=== PATIENT | male | born 1950 | race Caucasian/White ===

== ENCOUNTER 2021-08-24 13:31 | Outpatient (AMB) | payer MEDICARE, BC, SELFPAY ==
--- NOTE | 2021-08-24 13:54 | UROVISIT ---
Intake Vital Signs 08/24/21 13:55 Height 1.78 m Height Method Stated Weight 86.409 kg Weight Measurement Method Standing Scale BMI 27.3 Temp 98.1 F Temp Source Temporal Artery Scan Pulse 83 Pulse Source Monitor BP 135/93 H Blood Pressure Source Automatic Cuff Blood Pressure Location Left Upper Arm Position Sitting Intake Visit Reasons: Uro Office Visit Pipe Smoking Machine Offbearer Required: No Is patient in pain?: No Allergy Allergies No Known Allergies Allergy (Verified 08/24/21 13:55) Home Meds Medication Reconciliation rosuvastatin 10 mg tablet (Crestor) 10 mg PO QDAY 07/24/21 [History Confirmed 08/24/21] Nurse Note: Present with Dr Herrera in exam room. Patient to follow up as scheduled. mvp Fall Screening Do you have a fear of falling?: No Have you had a fall in the last 2 months?: No Do you use an assistive device for ambulation?: No Current Vital Signs Height Height Method Weight Weight Measurement Method Body Mass Index Temperature Temperature Source 1.78 m Stated 86.409 kg Standing Scale 27.3 98.1 F Temporal Artery Scan 08/24/21 13:55 08/24/21 13:55 08/24/21 13:55 08/24/21 13:55 08/24/21 13:55 08/24/21 13:55 08/24/21 13:55 Pulse Rate Pulse Source Blood Pressure Blood Pressure Source Blood Pressure Location Blood Pressure Position 83 Monitor 135/93 H Automatic Cuff Left Upper Arm Sitting 08/24/21 13:55 08/24/21 13:55 08/24/21 13:55 08/24/21 13:55 08/24/21 13:55 08/24/21 13:55 Urology Clinic Office Visit Office Visit Date of visit:: August 24, 2021 13:31 Allergies & Home Medications: Allergies No Known Allergies Allergy (Verified 07/24/21 09:51) Visit: Reason for visit: [] Office Visit findings: []
[2021-08-24 13:55] VITALS: BP 135/93; PULSE 83; TEMP 36.7; BMI 27.3
[2021-08-24 13:59] LABS: Bilirubin,Urine Clinitek Negative (Negative); Blood,Urine Clinitek 3+ (Negative); Glucose, Urine Clinitek Negative (Negative); Ketones,Urine Clinitek Trace (Negative); Leukocyte Esterase,Urine Clin Negative (Negative); Nitrite,Urine Clinitek Negative (Negative); PH,Urine Clinitek 5.5 (5.0-7.0); Protein,Urine Clinitek 3+ (Neg - Trace); Specific Gravity,Urine Clin >= 1.030 (1.001-1.030); Urobilinogen,Urine Clinitek 0.2 mg/dL (0.0-1.0)
--- NOTE | 2021-08-25 10:47 | ESPR_ITS ---
RE: CATINA PHILLIPS : 1950 DATE OF SERVICE: 08/24/2021 This is in-house consultation of this patient. CHIEF COMPLAINT: Right kidney mass 6.0 x 5.7 cm lower pole lateral cortex with adjacent lower pole cyst of 9.6 x 6.2 cm. BPH with urinary obstruction and LUTS. Family history of colon cancer. History of gross hematuria. History of stone disease. HISTORY OF PRESENT ILLNESS: This is a 71-year-old gentleman. This patient had a CAT scan of the abdomen and pelvis done in [facility]. I do not have the films. I have the report on the CAT scan. This revealed right kidney cancer 6 x 5.7 cm solid mass. PAST MEDICAL HISTORY: The patient has a history of stone disease in the past, he had a colonoscopy 2015. No abnormality was identified. SOCIAL HISTORY: The patient is not a smoker. I did urine for cytology. This revealed occasional cell showing increased N/A ratio large nucleoli atypical cells. I did MRI of the abdomen and pelvis in [facility]. It was reviewed by me. This revealed complex cystic solid mass, lower pole of right kidney 9.7 x 9.8 x 8.8 cm solid component occupying the lower pole of right kidney 5.4 x 6 x 5.3 cm. No tumor thrombus in the right renal vein or inferior vena cava. Past medical history, family history, review of systems, personal history, please refer to patient history form dated, 08/24/2021. It is in HPI, in EMR. VARIOUS LABS: His PSA on 08/14/2021, is 1.28. His IPSS score is 3. Quality of life due to symptom is mixed. IMPRESSION: Right kidney cancer. RECOMMENDATION: Cardiology clearance. I have called the captain/airline pilot. He is scheduled with Dr. Faust for partial/radical robotic-assisted nephrectomy and cystoscopic examination at the same time. I have called and talked about it and he is going to do a tele met and I answered all the patient's questions to his satisfaction. Forty-five minutes were spent in counseling and coordination of the care of the patient. DT: 15:30:18 TT: 18:24:00 Ref: [id number] - TID: [id number] [facility]
--- NOTE | 2021-08-26 11:40 | URONOTE_ITS ---
Intake Vital Signs 08/24/21 13:55 Height 1.78 m Height Method Stated Weight 86.409 kg Weight Measurement Method Standing Scale BMI 27.3 Temp 98.1 F Temp Source Temporal Artery Scan Pulse 83 Pulse Source Monitor BP 135/93 H Blood Pressure Source Automatic Cuff Blood Pressure Location Left Upper Arm Position Sitting Intake Visit Reasons: Uro Office Visit Allergy Allergies No Known Allergies Allergy (Verified 08/24/21 13:55) Home Meds Medication Reconciliation rosuvastatin 10 mg tablet (Crestor) 10 mg PO QDAY 07/24/21 [History Confirmed 08/24/21] Current Vital Signs Height Height Method Weight Weight Measurement Method Body Mass Index Temperature Temperature Source 1.78 m Stated 86.409 kg Standing Scale 27.3 98.1 F Temporal Artery Scan 08/24/21 13:55 08/24/21 13:55 08/24/21 13:55 08/24/21 13:55 08/24/21 13:55 08/24/21 13:55 08/24/21 13:55 Pulse Rate Pulse Source Blood Pressure Blood Pressure Source Blood Pressure Location Blood Pressure Position 83 Monitor 135/93 H Automatic Cuff Left Upper Arm Sitting 08/24/21 13:55 08/24/21 13:55 08/24/21 13:55 08/24/21 13:55 08/24/21 13:55 08/24/21 13:55 Office Procedures Uro Level of Care Nursing/Assessment/Reassessment Patient Status: Established Patient Nursing Assessment/Reassessment: Update [facility] data in EMR, Vital Signs and Medication Reconciliation Coordination of Care: Comp Pt/Fam Ed for care Established Patient Point Assignment: 50 Established Patient Point Charge: EP Level 2 (40-75) Procedure IM Injection: No Transrectal Ultrasound: No Urology Clinic Office Visit Office Visit Date of visit:: August 24, 2021 13:31 Allergies & Home Medications: Allergies No Known Allergies Allergy (Verified 08/24/21 13:55) Medication Reconciliation rosuvastatin 10 mg tablet (Crestor) 10 mg PO QDAY 07/24/21 [History Confirmed 08/24/21] Visit: Reason for visit: [] Office Visit findings: []
== END 2021-08-24 14:15 | disposition home or self-care (01) ==
LOC: HODURO 13:31
PROVIDERS: PCP Family Medicine; Visit Provider Urology

== ENCOUNTER → 2024-04-20 | Outpatient (BNVA) | payer MEDICARE, BC, SELFPAY | END | disposition home or self-care (01) | PROVIDERS: PCP Family Medicine; Referring Provider Family Medicine; Visit Provider Urology | DX: N28.1 Cyst of kidney, acquired (principal) | CPT/HCPCS: 99212; 99213; G0463 ==

== ENCOUNTER → 2024-06-01 | Outpatient (BNVA) | payer MEDICARE, BC, SELFPAY | END | disposition home or self-care (01) | PROVIDERS: PCP Family Medicine; Referring Provider Family Medicine; Visit Provider Urology | DX: N40.1 Benign prostatic hyperplasia with lower urinary tract symptoms (principal); N13.8 Other obstructive and reflux uropathy | CPT/HCPCS: 76872; 99212; G0463 ==

== ENCOUNTER → 2024-09-28 | Outpatient (BNVA) | payer MEDICARE, BC, SELFPAY | END | disposition home or self-care (01) | PROVIDERS: PCP Family Medicine; Referring Provider Family Medicine; Visit Provider Urology | DX: N40.1 Benign prostatic hyperplasia with lower urinary tract symptoms (principal); N13.8 Other obstructive and reflux uropathy; I12.9 Hypertensive chronic kidney disease with stage 1 through stage 4 chronic kidney disease, or unspecified chronic kidney disease; N18.4 Chronic kidney disease, stage 4 (severe); C64.1 Malignant neoplasm of right kidney, except renal pelvis; Z80.42 Family history of malignant neoplasm of prostate; E66.9 Obesity, unspecified; Z68.27 Body mass index [BMI] 27.0-27.9, adult | CPT/HCPCS: 81003; 99212; G0463 ==

== ENCOUNTER → 2025-02-04 | Outpatient (BNVA) | payer MEDICARE, BC, SELFPAY | END | disposition home or self-care (01) | PROVIDERS: PCP Family Medicine; Referring Provider Family Medicine; Visit Provider Urology | DX: N40.1 Benign prostatic hyperplasia with lower urinary tract symptoms (principal); N13.8 Other obstructive and reflux uropathy; C64.1 Malignant neoplasm of right kidney, except renal pelvis; Z80.42 Family history of malignant neoplasm of prostate; N18.30 Chronic kidney disease, stage 3 unspecified; N28.1 Cyst of kidney, acquired | CPT/HCPCS: 81003; 99212; G0463 ==

== ENCOUNTER → 2025-06-21 | Outpatient (BNVA) | payer MEDICARE, BC, SELFPAY | END | disposition home or self-care (01) | PROVIDERS: PCP Family Medicine; Referring Provider Family Medicine; Visit Provider Urology | DX: C64.1 Malignant neoplasm of right kidney, except renal pelvis (principal); N40.1 Benign prostatic hyperplasia with lower urinary tract symptoms; N13.8 Other obstructive and reflux uropathy; N18.4 Chronic kidney disease, stage 4 (severe); I48.91 Unspecified atrial fibrillation; Z80.42 Family history of malignant neoplasm of prostate | CPT/HCPCS: 81003; 99212; G0463 ==